=== PATIENT | female | born 1985 | race African-American/Black ===

== ENCOUNTER 2020-04-26 14:21 | Emergency (ER) | payer MEDICAID ==
[2020-04-26 14:28] VITALS: BP 111/55
--- NOTE | 2020-04-26 15:48 | ER Document Report ---
HPI - HPI Patient complains to provider of: Medication refill Time Seen by Provider: 04/26/20 15:36 Onset: Other Quality of pain: No pain Severity: None Pain Level: Denies Context: 34-year-old female presented to ED for med refill for clonazepam and Lexapro. She states she moved from [place] 3 and half weeks ago. She states she is due May 22. She has established with [facility] for a visit but has not seen them yet. She states she has been taking these medications for 4 years for her anxiety. She is 6 para 2. She states she is smokes 4 cigarettes does not use alcohol or drugs. She is seeking a refill on her anxiety medications. I have spoken with Dr. Vogel who is the attending physician at this time. He states we do not refill clonazepam and anxiety medications. He states she needs to follow-up with a mental health provider, primary care provider and a SUPERVISOR [employer]. Have given her a copy of the mental health referral page. I also given the name and number for [facility]. Associated Symptoms: None Exacerbated by: Denies Relieved by: Denies Similar symptoms previously: Yes Recently seen / treated by doctor: No - ROS ROS below otherwise negative: Yes - CONSTITUTIONAL Constitutional: DENIES: Fever, Chills - EENT EENT: DENIES: Sore Throat, Ear Pain, Nasal Drainage-Clear, Nasal Drainage- Purulent, Congestion, Eye problems - NEURO Neurology: DENIES: Headache, Weakness, Vision blurred, Dizzinesss / Vertigo - CARDIOVASCULAR Cardiovascular: DENIES: Chest pain - RESPIRATORY Respiratory: DENIES: Trouble Breathing, Coughing - GASTROINTESTINAL Gastrointestinal: DENIES: Abdominal Pain, Nausea, Patient vomiting, Diarrhea, Constipation, Black / Bloody Stools - URINARY Urinary: DENIES: Dysuria, Urgency, Frequency - REPRODUCTIVE Reproductive: REPORTS: : - MUSCULOSKELETAL Musculoskeletal: DENIES: Extremity pain, Back Pain, Neck Pain, Swelling - DERM Skin Color: Normal Skin Problems: None Past Medical History - General Information source: Patient - Social History Smoking Status: Current Every Day Smoker Cigarette use (# per day): Yes - 4 cigarettes a day Smoking Education Provided: Yes Frequency of alcohol use: None Drug Abuse: None Lives with: Family Family History: Reviewed & Not Pertinent Patient has suicidal ideation: No Patient has homicidal ideation: No - Past Medical History Cardiac Medical History: Reports: None Pulmonary Medical History: Reports: None EENT Medical History: Reports: None Neurological Medical History: Reports: None Endocrine Medical History: Reports: None Renal/ Medical History: Reports: None Malignancy Medical History: Reports: None GI Medical History: Reports: None Musculoskeletal Medical History: Reports None Skin Medical History: Reports None Psychiatric Medical History: Reports: None Traumatic Medical History: Reports: None Infectious Medical History: Reports: None Surgical Hx: Negative Past Surgical History: Reports: None Vertical Provider Document - CONSTITUTIONAL Agree With Documented VS: Yes Exam Limitations: No Limitations General Appearance: WD/WN - INFECTION CONTROL TRAVEL OUTSIDE OF THE [place] IN LAST 30 DAYS: No - HEENT HEENT: Atraumatic, Normal ENT Exam, Normocephalic, PERRLA - GI/ABDOMEN Notes: Her child is due May 22. She is obvious . - BACK Back: Normal Inspection - MUSCULOSKELETAL/EXTREMETIES Musculoskeletal/Extremeties: MAEW, FROM, Non-Tender - NEURO Level of Consciousness: Awake, Appropriate Motor/Sensory: No Motor Deficit, No Sensory Deficit - DERM Integumentary: Warm, Dry, No Rash Notes: Patient is very angry that we cannot refill her clonazepam and Lexapro the emergency room. She has been in [place] for 3 and half week and has not obtained a provider to fill her medications as yet. She does have some medications left in each bottle I did not open them to count them. I have informed her that she needs to follow-up with her primary care doctor. She states she was supposed to see [facility] but it was too hot to wait outside so she came to the emergency room I told her she needed to call the [facility] and try to get back into see them. Course - Vital Signs Vital signs: Temp Pulse Resp BP Pulse Ox 97.6 F 80 16 111/55 L 99 04/26/20 14:27 04/26/20 14:27 04/26/20 14:27 04/26/20 14:27 04/26/20 14:27 Discharge - Discharge Clinical Impression: Request medication refill Condition: Stable Disposition: HOME, SELF-CARE Additional Instructions: You were seen today for refill of clonazepam and Lexapro. You are now 8 months . I have spoken with the physician covering me and he stated that you need a primary care and an OB or mental health provider to refill these medications especially when you are . I have given you a list of mental health providers that you can follow-up with. FOLLOW-UP CARE: If you have been referred to a physician for follow-up care, call the physicians office for an appointment as you were instructed or within the next two days. If you experience worsening or a significant change in your symptoms, notify the physician immediately or return to the Emergency Department at any time for re-evaluation. Referrals: AIRAM MORALES CNM [NO LOCAL MD] - Follow up as needed [facility] [Provider Group] - Follow up as needed [facility] [Provider Group] - Follow up as needed
== END 2020-04-26 15:55 | disposition home or self-care (01) ==
LOC: ER 14:21
DX: Z76.0 Encounter for issue of repeat prescription (principal); O99.343 Other mental disorders complicating pregnancy, third trimester; F41.9 Anxiety disorder, unspecified; O99.333 Smoking (tobacco) complicating pregnancy, third trimester; F17.210 Nicotine dependence, cigarettes, uncomplicated; Z3A.00 Weeks of gestation of pregnancy not specified; Z79.899 Other long term (current) drug therapy
CPT/HCPCS: 99281

== ENCOUNTER → 2020-04-28 | Outpatient (CLI) | payer SELFPAY ==
--- NOTE | 2020-04-28 15:02 | RADIOLOGY REPORT (SQ) ---
EXAM DESCRIPTION: U/S OB 14+ TRNABD 1GES W/O DOP IMAGES COMPLETED DATE/TIME: 04/28/2020 2:44 pm REASON FOR STUDY: Z34.83 ENCOUNTER FOR SUPRVSN OF NORMAL , THIRD TRIMESTER Z34.83 ENCOUNTE R FOR SUPRVSN OF NORMAL , THIRD TRIM COMPARISON: None. TECHNIQUE: Static and Dynamic grayscale imaging performed of gravid uterus using transabdominal appr oach. Additional selected color Doppler and spectral images recorded. All stored on PACS. LIMITATIONS: None. FINDINGS: FETUSES SEEN:1 EGA: 36 weeks 1 day Calculated using BPD,FL,HC,AC documented on images. No discrepancy with clinical dates. ARELI: 05/25/2020 EFW: 2,964 grams PERCENTILE: 48 JOSE: 22.4 PLACENTA: Anterior. GRADE: II PRESENTATION: Cephalic. ANATOMY: HEART RATE: 139 beats per minute. FOUR CHAMBER HEART: Visualized. THREE VESSEL CORD: Yes. CORD INSERTION: Visualized. KIDNEYS AND BLADDER: Visualized. Appear normal. STOMACH: Visualized. Appears normal. SPINE: Normal as visualized. BRAIN AND LATERAL VENTRICLES: Visualized. Appear normal. OTHER: No other significant finding. MATERNAL ADNEXA: Maternal ovaries not visualized. CERVICAL LENGTH: 2.6 cm Closed. OTHER: No other significant finding. IMPRESSION: LIVING INTRAUTERINE . ESTIMATED GESTATIONAL AGE 36 weeks, 1 day NO VISUALIZED ANOMALIES. Trimester of : Third trimester - 28 weeks to delivery. TECHNICAL DOCUMENTATION: JOB ID: [id number] 2010 [employer]- All Rights Reserved Reading location - IP/workstation name: [email or web address]
== END ==
LOC: RAD 13:59
PROVIDERS: ATTEND Midwife
DX: Z34.83 Encounter for supervision of other normal pregnancy, third trimester (principal)
CPT/HCPCS: 76805

== ENCOUNTER 2020-05-17 15:22 | Outpatient (CLI) | payer MEDICAID ==
[2020-05-17 15:59] LABS: APPEARANCE,URINE CLEAR; BILIRUBIN,URINE NEGATIVE (NEGATIVE); COLOR,URINE YELLOW; GLUCOSE, URINE NEGATIVE (NEGATIVE); KETONES,URINE NEGATIVE (NEGATIVE); LEUKOCYTE ESTERASE,URINE NEGATIVE (NEGATIVE); NITRITE,URINE NEGATIVE (NEGATIVE); PROTEIN,URINE NEGATIVE (NEGATIVE); URINE SPECIFIC GRAVITY 1.009
[2020-05-17 16:14] LABS: URINE AMPHETAMINES SCREEN NEGATIVE; URINE BARBITURATES SCREEN NEGATIVE; URINE BENZODIAZEPINES SCREEN NEGATIVE; URINE COCAINE SCREEN NEGATIVE; URINE MARIJUANA (THC) SCREEN NEGATIVE; URINE METHADONE SCREEN NEGATIVE; URINE PHENCYCLIDINE SCREEN NEGATIVE
--- NOTE | 2020-05-17 17:51 | Non Stress Test Report ---
Non Stress Test Datetime Report Generated by CPN: 05/17/2020 17:51 DEMOGRAPHIC EGA NST: 39.2 VITAL SIGNS Pulse - NST: 81 NBPSYS NST: 99 NBPDIA NST: 60 MONITORING Monitor Explained: Monitor Explained; Test Explained; Patient Verbalized Understanding Time on Monitor: 05/17/2020 15:40 Time off Monitor: 05/17/2020 17:48 NST INTERVENTIONS NST Interventions: Reposition Patient Physician Notified NST: Dr. Jacinto on unit, reviewed fht BABY A: [id number] BABY A Movement : Present Contraction Frequency : irregular FHR Baseline : 130 Accelerations : 15X15 Decelerations : Variable Variability : Moderate 6-25bpm NST Review: Meets Criteria for Reactive NST NST Review and Verified By : AFeuston, RN NST Results: Reactive NST REPORT Report Trigger: Send Report
== END 2020-05-17 18:20 | disposition home or self-care (01) ==
LOC: LC 15:22
PROVIDERS: ATTEND Obstetrics & Gynecology Gynecology
DX: O47.1 False labor at or after 37 completed weeks of gestation (principal); O36.8330 Maternal care for abnormalities of the fetal heart rate or rhythm, third trimester, not applicable or unspecified; O99.333 Smoking (tobacco) complicating pregnancy, third trimester; F17.210 Nicotine dependence, cigarettes, uncomplicated; O09.523 Supervision of elderly multigravida, third trimester; Z3A.39 39 weeks gestation of pregnancy
CPT/HCPCS: 59025; 80307; 81005; 84112

== ENCOUNTER 2020-05-18 00:44 | Inpatient (IN) | payer MEDICAID ==
[2020-05-18] MEDS ORDERED: RINGERS SOLUTION,LACTATED 1,000 ML IV PRN (00:50)
[2020-05-18] MEDS ORDERED: LIDOCAINE 1% INJ-PF (10 MG/ML) 30 ML SDV ONE ×2 (00:54→00:58)
[2020-05-18] MEDS ORDERED: MISOPROSTOL 0.2 MG TABLET ONE ×2 (00:54→00:58)
[2020-05-18] MEDS ORDERED: OXYTOCIN/0.9 % SODIUM CHLORIDE 0 UNIT/0 ML RTUINJ ONE (00:54)
[2020-05-18] MEDS ORDERED: OXYTOCIN 10 UNIT/ML VIAL ONE ×2 (00:54→00:58)
[2020-05-18] MEDS ORDERED: OXYTOCIN/0.9 % SODIUM CHLORIDE 30 UNIT/500 ML RTUINJ ONE (00:58)
[2020-05-18] MEDS ORDERED: RINGERS SOLUTION,LACTATED 1,000 ML IV ONE (01:10)
--- NOTE | 2020-05-18 01:18 | Admission Physical ---
Datetime Report Generated by CPN: 05/18/2020 01:18 CURRENT ADMISSION Chief Complaint: Uterine Contractions Indication for Induction: Not Applicable Admit Impression : Term, Intrauterine Admit Plan: Initiate Labor Protocol ALLERGIES Medication Allergies: No Medication Allergies: No Known Allergies (04/26/2020) Latex: No Latex Allergies OBSTETRICAL HISTORY EDC: 05/22/2020 00:00 : 3 Para: 2 Term: 2 Gestational Diabetes: No Rh Sensitization: No Incompetent Cervix: No VALERIE: No Infertility: No ART Treatment: No Uterine Anomaly: No IUGR: No Hx Previous C/S: No Macrosomia: No Hx Loss/Stillborn: No PIH: No Hx : No Placenta Previa/Abruption: No Depression/PP Depression: Yes PTL/PROM: No Post Hemorrhage: No SEE RECORDS Alcohol: No Marijuana : No Cocaine: No Other Illicit Drugs: No Cigarettes: Current Everyday Smoker. [id number] Cigarette Frequency: 5 - 10 per day Advised to Stop: No MEDICAL HISTORY Diabetes: No Blood Transfusion: No Pulmonary Disease (Asthma, TB): No Breast Disease: No Hypertension: No Music Cataloguer Surgery: No Heart Disease: No Hosp/Surgery: Yes Autoimmune Disorder: No Anesthetic Complications: No Kidney Disease: No Abnormal Pap Smear: No Neuro/Epilepsy: No Psychiatric Disorders: No Other Medical Diseases: No Hepatitis/Liver Disease: No Significant Family History: No Varicosities/Phlebitis: No Trauma/Violence : No Thyroid Dysfunction: No Medical History Comments: anxiety, childbirth INFECTIOUS HISTORY Gonorrhea: No Genital Herpes: No Chlamydia: No Tuberculosis: No Syphilis: No Hepatitis: No HIV/AIDS Exposure: No Rash or Viral Illness: No HPV: No PHYSICAL EXAM General: Normal HEENT: Normal Neurologic: Normal Thyroid: Normal Heart: Normal Lungs: Normal Breast: Deferred Back: Normal Abdomen: Normal Genitourinary Exam: Normal Extremities: Normal DTRs: Normal Pelvic Type: Adequate FETUS A EGA: 39.3 PLANS FOR LABOR AND DELIVERY Labor and Delivery: None Pain Management: Medications; Epidural Feeding Preference: Formula Benefit of Breast Feed Discussed: Yes Circumcision: Yes INFORMED CONSENT Signature: with User ID: [email or web address]
[2020-05-18] MEDS ORDERED: MAGNESIUM HYDROXIDE SUSP 30 ML UDCUP PO PRN (01:21)
[2020-05-18] MEDS ORDERED: PSEUDOEPHEDRINE HCL 30 MG TABLET PO PRN (01:21)
[2020-05-18] MEDS ORDERED: BENZOCAINE/MENTHOL AEROSOL SPRAY 56 ML TOP PRN (01:21)
[2020-05-18] MEDS ORDERED: MEASLES,MUMPS&RUBELLA VACC/PF 0.5 ML VIAL SUBCUT PRN ×2 (01:21→10:30)
[2020-05-18] MEDS ORDERED: DIPHENHYDRAMINE HCL 25 MG CAPSULE PO PRN (01:21)
[2020-05-18] MEDS ORDERED: OXYTOCIN/0.9 % SODIUM CHLORIDE 30 UNIT/500 ML RTUINJ IV PRN (01:21)
[2020-05-18] MEDS ORDERED: DIPH/PERTUSS(ACELL)/TETANUS VAC/PF 0.5 ML SYR (>=10YO) IM PRN ×2 (01:21→10:30)
[2020-05-18] MEDS ORDERED: NA PHOS,M-B/NA PHOS,DI-BA (ADULT) 133 ML ENEMA PR PRN (01:21)
[2020-05-18] MEDS ORDERED: PROMETHAZINE HCL INJ 25 MG/1 ML VIAL IV PRN ×2 (01:21→10:30)
[2020-05-18] MEDS ORDERED: PROMETHAZINE HCL 25 MG SUPP.RECT PR PRN (01:21)
[2020-05-18] MEDS ORDERED: GLYCERIN/WITCH HAZEL LEAF 1 EACH MED..WIPE TP PRN (01:21)
[2020-05-18] MEDS ORDERED: ACETAMINOPHEN 650 MG SUPP.RECT PR PRN (01:21)
[2020-05-18] MEDS ORDERED: ACETAMINOPHEN WITH CODEINE #3 TABLET PO PRN (01:21)
[2020-05-18] MEDS ORDERED: DIBUCAINE 1% OINTMENT 28 GM TP PRN (01:21)
[2020-05-18] MEDS ORDERED: PROMETHAZINE HCL 25 MG TABLET PO PRN (01:21)
[2020-05-18] MEDS ORDERED: ZOLPIDEM TARTRATE 5 MG TABLET PO PRN (01:21)
[2020-05-18] MEDS ORDERED: IBUPROFEN 800 MG TABLET ONE (01:22)
[2020-05-18 01:26] LABS: ABSOLUTE BASOPHILS # (AUTO) 0.1 10^3/uL (0.0-0.2); ABSOLUTE EOSINOPHILS # (AUTO) 0.2 10^3/uL (0.0-0.6); ABSOLUTE LYMPHOCYTES (AUTO) 2.8 10^3/uL (0.5-4.7); ABSOLUTE MONOCYTES (AUTO) 0.9 10^3/uL (0.1-1.4); ABSOLUTE NEUT (AUTO) 5.3 10^3/uL (1.7-8.2); BASOPHILS % (AUTO) 1.1 % (0-2); HEMATOCRIT 31.1 % (36.0-47.0); LYMPHOCYTES % (AUTO) 30.4 % (13-45); MEAN CORPUSCULAR HGB CONC 35.3 g/dL (32.0-36.0); MEAN CORPUSCULAR VOLUME 88 fl (80-97); MONOCYTES % (AUTO) 9.8 % (3-13); PLATELET COUNT 282 10^3/uL (150-450); RED BLOOD COUNT 3.54 10^6/uL (3.72-5.28); RED CELL DISTRIBUTION WIDTH 14.4 % (11.5-14.0); SEGMENTED NEUTROPHILS % (AUTO) 56.7 % (42-78); TOTAL CELLS COUNTED % (AUTO) 100 %; WHITE BLOOD COUNT 9.3 10^3/uL (4.0-10.5)
--- NOTE | 2020-05-18 02:56 | Delivery Summary ---
Del Sum A-C Datetime Report Generated by CPN: 05/18/2020 02:56 DELIVERY PERSONNEL DELIVERY PERSONNEL: [id number] Delivery Doctor:: Shekhar Jacinto MD Labor and Delivery Nurse:: Aurelia Puri RNdehydration plant operator Nurse:: Maria L Colin RN Nursery Nurse:: Leann MAGANA Solar Manufacturer'S Representative/RESET MERCHANDISER: Gill Toribio, ST MATERNAL INFORMATION Delivery Anesthesia: None Medications After Delivery: Pitocin 30 Units in 500ml NS/D5W Delivery QBL: 150 Maternal Complications: Precipitous Labor (<3hrs) LABOR SUMMARY EDC: 05/22/2020 00:00 No. Babies in Womb: 1 Attempted: No Labor Anesthesia: None LABOR INFORMATION Reason for Induction: Not Applicable Onset of Labor: 05/18/2020 00:00 Complete Dilatation: 05/18/2020 01:08 Oxytocin: N/A Group B Beta Strep: negative Antibiotics # of Doses: 0 Steroids Given: None Reason Steroids Not Administered: Not Applicable MEMBRANES Membranes Rupture Method: Spontaneous Rupture of Membranes: 05/18/2020 00:54 Length of Rupture (hr): 0.27 Amniotic Fluid Color: Clear Amniotic Fluid Amount: Moderate Amniotic Fluid Odor: Normal STAGES OF LABOR Stage 1 hr: 1 Stage 1 min: 8 Stage 2 hr: 0 Stage 2 min: 2 Stage 3 hr: 0 Stage 3 min: 4 Total Time in Labor hr: 1 Total Time in Labor min: 14 VAGINAL DELIVERY Episiotomy: None Laceration #1: None Laceration Extension #1: N/A Laceration Repair: Not Applicable Sponge Count Correct: N/A Sharps Count Correct: N/A CSECTION DELIVERY Primary Indication: N/A Secondary Indication: N/A CSection Urgency: N/A CSection Incidence: N/A Labor: N/A CSection Incision: N/A BABY A INFORMATION Infant Delivery Date/Time: 05/18/2020 01:10 Method of Delivery: Vaginal Nurse Controlled Delivery: No Born in Route : No : N/A Forceps: N/A Vacuum Extraction: N/A Shoulder Dystocia : No PRESENTATION/POSITION BABY A Presentation: Cephalic Cephalic Presentation: Vertex Vertex Position: Left Occipital Anterior Breech Presentation: N/A PLACENTA INFORMATION BABY A Placenta Delivery Time : 05/18/2020 01:14 Placenta Method of Delivery: Spontaneous Placenta Status: Delivered SCORES BABY A Heart Rate 1 min: >100 bpm Resp Effort 1 min: Good Cry Reflex Irritability 1 min: Cough or Sneeze or Pulls Away Muscle Tone 1 min: Some Flexion of Extremities Color 1 min: Blue/Pale Resuscitation Effort 1 min: Tactile Stimulation SCORE 1 MIN: 7 Heart Rate 5 min: >100 bpm Resp Effort 5 min: Good Cry Reflex Irritability 5 min: Cough or Sneeze or Pulls Away Muscle Tone 5 min: Some Flexion of Extremities Color 5 min: Body [place], Extremities Blue Resuscitation Effort 5 min: Tactile Stimulation; Oxygen SCORE 5 MIN: 8 INFORMATION BABY A Gestational Age at Delivery: 39.3 Gestational Status: Full Term- 39- 40.6 Weeks Infant Outcome : Liveborn Infant Condition : Stable Infant Sex: Male IDENTIFICATION BABY A Verification Date/Time: 05/18/2020 01:22 ID Band Number: [id number] Mother's Name Verified: Yes Infant RN Verifying : Nain Alberto RN/RSherin UlrichDixie RN WEIGHT/LENGTH BABY A Infant Birthweight (gm): 2909 Infant Weight (lb): 6 Weight (oz): 7 Infant Length (in): 19.50 Infant Length (cm): 49.53 CORD INFORMATION BABY A No. Cord Vessels: 3 Nuchal Cord : Around Neck x1, Loose Cord Blood Taken: Yes-For Eval (Mom's Blood Type - or O+) Infant Suction: Mouth; Nose ASSESSMENT BABY A Complications: None Physical Findings at Delivery: Other Physical Findings- Other: see nursery assessment Respirations: Appears Normal Skin to Skin: Yes Skin to Skin Time (min): 60 Distance Learning Coordinator/ALS Called : No Care By: Leann Cade RN Transferred To: Remains with Mother BABY B INFORMATION : N/A SIGNATURES Signature: with User ID: [email or web address]
--- NOTE | 2020-05-18 02:56 | Birth Certificate Data ---
Cert Data Datetime Report Generated by TERRIE: 05/18/2020 02:56 CERTIFICATE DATA 47a. Care: Yes (05/17/2020 15:24:Aurelia Puri RN) 47b. Date of First Visit: 10/06/2019 00:00 (05/17/2020 15:24:Aurelia Puri RN) 47c. Date of Last Visit: 05/11/2020 00:00 (05/17/2020 15:24:Aurelia Puri RN) 47d. Number of Visits: 6 (05/17/2020 15:24:Aurelia Puri RN) 48a. Number of Prev Live Births: 2 (05/17/2020 15:24:Aurelia Puri RN) 48b. Now Livin (05/17/2020 15:24:Aurelia Puri RN) 48c. Live Births Now : 0 (05/17/2020 15:24:QS system process) 48e. Losses: 0 (05/17/2020 15:24:Aurelia Puri RN) RISK FACTORS IN THIS 49a. Diabetes: No (05/17/2020 15:24:Lanie Chao RN) 49b. Hypertension: No (05/17/2020 15:24:Lanie Caho RN) 49d. Stillborns: No (05/17/2020 15:24:Lanie Chao RN) 49d. IUGR: No (05/17/2020 15:24:Lanie Chao RN) 49e. Infertility Treatment: No (05/17/2020 15:24:Lanie Chao RN) Mother's Weight 51a. Pre- Weight (lbs): 159 (05/17/2020 15:24:Praveenanibaltyrel Puri RN) Infections Present/Treated 53a. Gonorrhea: No (05/17/2020 15:24:Lanie Chao RN) Results this Hospital Visit : Negative (05/17/2020 15:24:Lanie Chao RN) 53b. Syphilis: No (05/17/2020 15:24:Lanie Chao RN) 53c. Chlamydia: No (05/17/2020 15:24:Lanie Chao RN) Results this Hospital Visit: Negative (05/17/2020 15:24:Lanie Chao RN) 53d. Hepatitis B: No (05/17/2020 15:24:Lanie Chao RN) Results this Hospital Visit: Negative (05/17/2020 15:24:Lanie Chao RN) 53e. Hepatitis C: Negative (05/17/2020 15:24:Lanie Chao RN) 53h. Mother Tested for HBsAG: Yes (05/17/2020 15:24:Lanie Chao RN) 53i. Date Tested: 04/21/2020 00:00 (05/17/2020 15:24:Aurelia Puri RN) 53j. Test Result: Negative (05/17/2020 15:24:Lanie Chao RN) Cigarette Smoking 55a. Packs: 1/2 (05/17/2020 15:24:Aurelia Puri RN) 55b. Packs: 1/2 (05/17/2020 15:24:Aurleia Puri RN) 55c. 2nd Trimester of Preg- Ci (05/17/2020 15:24:Lanie Chao RN) 55d. 3rd Trimester of Preg- Ci (05/17/2020 15:24:Lanie Chao RN) Onset of Labor 56a. PROM >12 Hrs: 0.27 (05/18/2020 00:54:QS system process) 56b. Precipitous Labor <3 Hrs: 1 (05/17/2020 15:24:QS system process) 56c. Prolonged Labor > 20 Hrs: 1 (05/17/2020 15:24:QS system process) 57a. Induction of Labor: N/A (05/17/2020 15:24:Maria L Colin RN) 57c. Non-Vertex Presentation A: Vertex (05/17/2020 15:24:Maria L Colin RN) 57d. Steroids - Lung Mat: None (05/17/2020 15:24:Maria L Colin RN) 57d. Steroids - Lung Mat: Not Applicable (05/17/2020 15:24:Maria L Colin RN) 57f. Mat [place] or Temp >100.4: 98.0 (05/17/2020 15:24:Aurelia Puri RN) 57g. Moderate/Heavy Meconium: Clear (05/18/2020 00:54:Maria L Colin RN) 57h. Intolerance of Labor: N/A (05/17/2020 15:24:Lexy Alberto RN) : N/A (05/17/2020 15:24:Lexy Alberto RN) 57i. Epidural/Spinal Anesthesia: None (05/17/2020 15:24:Lexy Alberto RN) Method of Delivery 58a. Forceps - Unsuccessful A: N/A (05/17/2020 15:24:Lexy Alberto RN) 58b. Vacuum - Unsuccessful A: N/A (05/17/2020 15:24:Lexy Alberto RN) 58c. Presentation at 58c. Presentation at - A : Vertex (05/17/2020 15:24:Maria L Colin RN) 58c. Presentation at - A : N/A (05/17/2020 15:24:Maria L Colin RN) 58c. Presentation at - A : Cephalic (05/17/2020 15:24:Maria L Colin RN) Final Route and Method of Del 58d. Baby A Route/Delivery: Vaginal (05/18/2020 01:10:Maria L Colin RN) 58e. Trial of Labor Attempted: No (05/17/2020 15:24:Maria L Colin RN) 58e. Trial of Labor Attempted A: N/A (05/17/2020 15:24:Maria L Colin RN) 58e. Trial of Labor Attempted B: N/A (05/17/2020 15:24:Maria L Colin RN) Maternal Morbidity 59b. 3rd or 4th Degree Lacs: None (05/17/2020 15:24:Shekhar Jacinto, MD ([facility])) Birthweight Baby A: 2909 (05/17/2020 15:24:Aurelia Puri RN) 60a. Pounds : 6 (05/17/2020 15:24:QS system process) 60b. Ounces: 7 (05/17/2020 15:24:QS system process) 61. GA at Delivery Baby A: 39.3 (05/17/2020 15:24:Maria L Colin RN) : Full Term- 39- 40.6 Weeks (05/17/2020 15:24:QS system process) 62a. 5 Minute Baby A: 8 (05/17/2020 15:24:QS system process)
[2020-05-18] MEDS: IBUPROFEN 800 MG TABLET PO SCH ×3 (05:01→21:41)
--- NOTE | 2020-05-18 09:24 | PDOC PROGRESS REPORT ---
Subjective-OB Progress Note for:: 05/18/20 - Delivery Day. Pt doing well, no complaints, UOB, voiding, bottlefeeding Physical Exam (OB) Vital Signs: Temp Pulse Resp BP Pulse Ox 98.2 F 76 16 97/55 L 100 05/18/20 08:00 05/18/20 08:00 05/18/20 08:00 05/18/20 08:00 05/18/20 08:00 Intake & Output 05/17/20 05/18/20 05/19/20 06:59 06:59 06:59 Output Total 250 Balance -250 - General General Appearance: Appears well, Alert In distress: None - PIH/Pre-Eclampsia Clonus: Negative Headache: Absent Epigastric Pain: No Visual Changes: No - Maternal Morbidity 59. Maternal Morbidity (serious complications experinced by the mother associated with labor and delivery: None of the above - Lochia Lochia Amount: Small 10-25 ml Lochia Color: Rubra/Red - Abdomen Description: Soft Hernia Present: No Fundal Description: Firm, Midline Fundal Height: u/u - u/2 - Respiratory Respiratory Status: No respiratory distress - Genitourinary Genitourinary Note: voiding - Neurological Cognition: Normal Orientation: AAOx4 Objective-Diagnostic Laboratory: 05/18/20 01:02 05/18/20 05/18/20 01:02 01:02 WBC 9.3 RBC 3.54 L Hgb 11.0 L Hct 31.1 L MCV 88 MCH 31.0 MCHC 35.3 RDW 14.4 H Plt Count 282 Seg Neutrophils % 56.7 Blood Type O POSITIVE Antibody Screen NEGATIVE Assessment and Plan(PN) - Assessment and Plan (1) (normal spontaneous vaginal delivery) Is this a current diagnosis for this admission?: Yes Plan:: Routine PP orders, ambulation encouraged - Time Spent with Patient Time with patient: Less than 15 minutes Medications reviewed and adjusted accordingly: Yes - Disposition Anticipated Discharge Disposition: Home, Self Care Anticipated Discharge Timeframe: within 48 hours
[2020-05-18] MEDS: FERROUS SULFATE 325 MG TABLET PO SCH ×2 (10:27→20:31)
[2020-05-18] MEDS: PRENATAL VITAMIN W DHA CAPSULE PO SCH (10:27)
[2020-05-18] MEDS: FAMOTIDINE 20 MG TABLET PO SCH ×2 (10:27→21:42)
[2020-05-18] MEDS: DOCUSATE SODIUM 100 MG CAPSULE PO SCH ×2 (10:27→20:31)
[2020-05-18] MEDS: SENNOSIDES/DOCUSATE 8.6-50 MG 1 EACH TABLET PO SCH (10:27)
[2020-05-18] MEDS ORDERED: HYDROXYZINE PAMOATE 50 MG CAPSULE PO PRN (10:59)
[2020-05-18] MEDS: ESCITALOPRAM OXALATE 10 MG TABLET PO SCH (21:41)
[2020-05-19] MEDS: IBUPROFEN 800 MG TABLET PO SCH ×3 (05:11→21:06)
[2020-05-19 08:07] LABS: HEMATOCRIT 27.9 % (36.0-47.0); HEMOGLOBIN 9.7 g/dL (12.0-15.5); MEAN CORPUSCULAR HEMOGLOBIN 30.7 pg (27.0-33.4); MEAN CORPUSCULAR HGB CONC 34.6 g/dL (32.0-36.0); MEAN CORPUSCULAR VOLUME 89 fl (80-97); PLATELET COUNT 226 10^3/uL (150-450); RED BLOOD COUNT 3.15 10^6/uL (3.72-5.28); RED CELL DISTRIBUTION WIDTH 14.4 % (11.5-14.0); WHITE BLOOD COUNT 9.2 10^3/uL (4.0-10.5)
[2020-05-19] MEDS: FERROUS SULFATE 325 MG TABLET PO SCH ×3 (10:39→18:50)
[2020-05-19] MEDS: SENNOSIDES/DOCUSATE 8.6-50 MG 1 EACH TABLET PO SCH (10:39)
[2020-05-19] MEDS: FAMOTIDINE 20 MG TABLET PO SCH ×2 (10:39→21:06)
[2020-05-19] MEDS: DOCUSATE SODIUM 100 MG CAPSULE PO SCH ×2 (10:39→18:50)
[2020-05-19] MEDS: PRENATAL VITAMIN W DHA CAPSULE PO SCH ×2 (10:39→10:42)
--- NOTE | 2020-05-19 13:39 | PDOC PROGRESS REPORT ---
Subjective-OB Progress Note for:: 05/19/20 Subjective: 34yo s/p vaginal delivery ppd1. Pt ambulating, voiding and passing gas without difficulty. Reports pain well controlled with medication. No concerns today. Physical Exam (OB) Vital Signs: Temp Pulse Resp BP Pulse Ox 98.0 F 79 18 105/58 L 100 05/19/20 10:30 05/18/20 19:04 05/18/20 19:04 05/18/20 19:04 05/18/20 19:04 Intake & Output 05/18/20 05/19/20 05/20/20 06:59 06:59 06:59 Intake Total 650 300 Output Total 250 Balance 400 300 Weight 72.8 kg - General General Appearance: Appears well In distress: None - PIH/Pre-Eclampsia Clonus: Negative Headache: Absent Epigastric Pain: No Visual Changes: No - Maternal Morbidity 59. Maternal Morbidity (serious complications experinced by the mother associated with labor and delivery: None of the above - Episiotomy/Laceration Site Condition: N/A - Lochia Lochia Amount: Small 10-25 ml Lochia Color: Rubra/Red - Abdomen Description: Soft Hernia Present: No Fundal Description: Firm, Midline Fundal Height: u/u - u/2 - Respiratory Respiratory Status: No respiratory distress - Extremities Upper extremity: Normal inspection Lower extremities: Normal inspection - Neurological Cognition: Normal Orientation: AAOx4 - Psychological Associated symptoms: Normal affect, Normal mood Objective-Diagnostic Laboratory: 05/19/20 07:43 05/19/20 07:43 WBC 9.2 RBC 3.15 L Hgb 9.7 L Hct 27.9 L MCV 89 MCH 30.7 MCHC 34.6 RDW 14.4 H Plt Count 226 Assessment and Plan(PN) - Assessment and Plan (1) Acute blood loss anemia Is this a current diagnosis for this admission?: Yes Plan: increase dietary iron and FeSO4 BID (2) Smoking (tobacco) complicating , third trimester Is this a current diagnosis for this admission?: Yes Plan: cessation encouraged (3) Late care complicating Qualifiers: Trimester: unspecified trimester Qualified Code(s): O09.30 - Supervision of with insufficient care, unspecified trimester Is this a current diagnosis for this admission?: Yes Plan: delivered (4) (normal spontaneous vaginal delivery) Is this a current diagnosis for this admission?: Yes Plan: routine pp care - Time Spent with Patient Time with patient: Less than 15 minutes Smoking Education Provided: Over 3 minutes Medications reviewed and adjusted accordingly: Yes - Disposition Anticipated Discharge Disposition: Home, Self Care Anticipated Discharge Timeframe: within 24 hours
[2020-05-19] MEDS: ESCITALOPRAM OXALATE 10 MG TABLET PO SCH (21:06)
[2020-05-20] MEDS: IBUPROFEN 800 MG TABLET PO SCH ×2 (05:44→13:22)
[2020-05-20 09:04] VITALS: BP 120/75
[2020-05-20] MEDS: FERROUS SULFATE 325 MG TABLET PO SCH (09:35)
[2020-05-20] MEDS: PRENATAL VITAMIN W DHA CAPSULE PO SCH (09:35)
[2020-05-20] MEDS: DOCUSATE SODIUM 100 MG CAPSULE PO SCH (09:35)
[2020-05-20] MEDS: SENNOSIDES/DOCUSATE 8.6-50 MG 1 EACH TABLET PO SCH (09:35)
[2020-05-20] MEDS: FAMOTIDINE 20 MG TABLET PO SCH (09:47)
--- NOTE | 2020-05-20 09:55 | PDOC DISCHARGE SUMMARY ---
Impression - Admit/DC Date/PCP Admission Date/Primary Care Provider: 05/18/20 00:56 JARRELL ARIZMENDI MD Discharge Date: 05/20/20 - Discharge Diagnosis (1) Anxiety Is this a current diagnosis for this admission?: Yes (2) Late care complicating Is this a current diagnosis for this admission?: Yes (3) (normal spontaneous vaginal delivery) Is this a current diagnosis for this admission?: Yes (4) Smoking (tobacco) complicating , third trimester Is this a current diagnosis for this admission?: Yes - Additional Information Discharge Diet: Regular Discharge Activity: Balance Activity w/Rest, Pelvic Rest Referrals: JARRELL ARIZMENDI MD [Primary Care Provider] - Prescriptions: Ibuprofen [Motrin 800 mg Tablet] 800 mg PO Q8HP PRN #60 tablet PRN Reason: Home Medications: Clonazepam [Klonopin] 1 mg PO DAILYP PRN 05/18/20 Escitalopram Oxalate [Lexapro] 30 mg PO QHS 05/18/20 Ibuprofen [Motrin 800 mg Tablet] 800 mg PO Q8HP PRN #60 tablet 05/20/20 Vit/Dha [ Multi + Dha Capsule] 1 cap PO DAILY capsule 05/20/20 Hospital Course 59. Maternal Morbidity (serious complications experinced by the mother associated with labor and delivery: None of the above Results Laboratory Results: WBC 9.2 10^3/uL (4.0-10.5) 05/19/20 07:43 RBC 3.15 10^6/uL (3.72-5.28) L 05/19/20 07:43 Hgb 9.7 g/dL (12.0-15.5) L 05/19/20 07:43 Hct 27.9 % (36.0-47.0) L 05/19/20 07:43 MCV 89 fl (80-97) 05/19/20 07:43 MCH 30.7 pg (27.0-33.4) 05/19/20 07:43 MCHC 34.6 g/dL (32.0-36.0) 05/19/20 07:43 RDW 14.4 % (11.5-14.0) H 05/19/20 07:43 Plt Count 226 10^3/uL (150-450) 05/19/20 07:43 Lymph % (Auto) 30.4 % (13-45) 05/18/20 01:02 Mccreary % (Auto) 9.8 % (3-13) 05/18/20 01:02 Eos % (Auto) 2.0 % (0-6) 05/18/20 01:02 Baso % (Auto) 1.1 % (0-2) 05/18/20 01:02 Absolute Neuts (auto) 5.3 10^3/uL (1.7-8.2) 05/18/20 01:02 Absolute Lymphs (auto) 2.8 10^3/uL (0.5-4.7) 05/18/20 01:02 Absolute Monos (auto) 0.9 10^3/uL (0.1-1.4) 05/18/20 01:02 Absolute Eos (auto) 0.2 10^3/uL (0.0-0.6) 05/18/20 01:02 Absolute Basos (auto) 0.1 10^3/uL (0.0-0.2) 05/18/20 01:02 Seg Neutrophils % 56.7 % (42-78) 05/18/20 01:02 RPR NONREACTIVE (NONREACTIVE) 05/18/20 01:02 Blood Type O POSITIVE 05/18/20 01:02 Antibody Screen NEGATIVE 05/18/20 01:02 Plan Plan of Treatment: follow up in 4 weeks at [facility] for post check
== END 2020-05-20 16:11 | disposition home or self-care (01) | DRG 806 ==
LOC: LC 00:44 → LR 00:56 → 2S 03:17
PROVIDERS: ADMIT Obstetrics & Gynecology Gynecology; ATTEND Obstetrics & Gynecology Gynecology
PROC: 10E0XZZ Delivery of Products of Conception, External Approach (ICD-10-PCS; principal; 2020-05-18)
DX: O99.344 Other mental disorders complicating childbirth (principal); D62 Acute posthemorrhagic anemia; Z37.0 Single live birth; F41.9 Anxiety disorder, unspecified; O99.334 Smoking (tobacco) complicating childbirth; F17.210 Nicotine dependence, cigarettes, uncomplicated; O90.81 Anemia of the puerperium; O62.3 Precipitate labor; O69.81X0 Labor and delivery complicated by cord around neck, without compression, not applicable or unspecified; Z79.899 Other long term (current) drug therapy; Z3A.39 39 weeks gestation of pregnancy; Z20.828 Contact with and (suspected) exposure to other viral communicable diseases
CPT/HCPCS: 36415; 85025; 85027; 86592; 86850; 86900; 86901; J2590; J3490